=== PATIENT | female | born 1965 | race Caucasian/White ===

== ENCOUNTER 2018-07-14 09:31 | Day surgery (SDC) | payer OTHER ==
[2018-07-14] MEDS ORDERED: MIDAZOLAM 1 MG/ML 2 ML INJ (10:50)
[2018-07-14] MEDS ORDERED: PROPOFOL 40 ML (10:50)
== END 2018-07-14 14:32 | disposition home or self-care (01) ==
LOC: GIL 09:31
DX: Z12.11 Encounter for screening for malignant neoplasm of colon (principal); D12.5 Benign neoplasm of sigmoid colon; K21.9 Gastro-esophageal reflux disease without esophagitis; K44.9 Diaphragmatic hernia without obstruction or gangrene; K29.50 Unspecified chronic gastritis without bleeding; E11.9 Type 2 diabetes mellitus without complications; I10 Essential (primary) hypertension; M19.90 Unspecified osteoarthritis, unspecified site; E66.9 Obesity, unspecified; Z68.32 Body mass index [BMI] 32.0-32.9, adult; Z88.1 Allergy status to other antibiotic agents; Z88.8 Allergy status to other drugs, medicaments and biological substances
CPT/HCPCS: 43239; 82962; 88305; 88312

== ENCOUNTER 2018-09-22 06:14 | Inpatient (IN) | payer OTHER ==
[2018-09-22] MEDS ORDERED: morphine (1 MG/ML) 10ML SYRINGE IV ×3 (06:30)
[2018-09-22] MEDS ORDERED: ONDANSETRON 4 MG INJ IV ×2 (06:30→09:30)
[2018-09-22] MEDS ORDERED: EPHEDrine SULFATE 50 MG/5 ML SYG IV (06:30)
[2018-09-22] MEDS ORDERED: MIDAZOLAM 1 MG/ML 2 ML INJ IV (06:30)
[2018-09-22] MEDS ORDERED: FENTAnyl 50 MCG/ML VIAL IV (06:30)
[2018-09-22] MEDS ORDERED: ATROPINE 1 MG/10 ML SYRINGE IV (06:30)
[2018-09-22] MEDS ORDERED: DIPHENHYDRAMINE 50 MG INJ IV (06:30)
[2018-09-22] MEDS ORDERED: HYDROmorphONE 1 MG/5 ML IV SYRINGE IV ×2 (06:30)
[2018-09-22] MEDS ORDERED: OXYCODONE/ACETAMINOPHEN (5/325) TAB PO ×2 (06:30)
[2018-09-22] MEDS ORDERED: hydrALAzine 20 MG INJ IV (06:30)
[2018-09-22] MEDS ORDERED: MEPERIDINE 25 MG INJ IV (06:30)
[2018-09-22] MEDS ORDERED: LABETALOL HCL 20MG INJ IV (06:30)
[2018-09-22] MEDS ORDERED: FLUMAZENIL 0.5 MG INJ (07:00)
[2018-09-22 07:59] LABS: INR 0.87; PROTIME 11.9 Sec (11.9-14.9); PT RATIO 0.9
[2018-09-22 08:00] LABS: PARTIAL THROMBOPLASTIN TIME 28.2 Sec (23.0-35.0)
[2018-09-22] MEDS ORDERED: GLUCOSE GEL 15 GRAM TUBE BUCCAL (09:30)
[2018-09-22] MEDS ORDERED: NACL 0.9% 3 ML SYG IV (09:30)
[2018-09-22] MEDS ORDERED: DEXTROSE 50% 50 ML SYRINGE IV ×2 (09:30)
[2018-09-22] MEDS ORDERED: GLUCAGON 1 MG INJ IM (09:30)
[2018-09-22] MEDS ORDERED: GLUCOSE GEL 15 GRAM TUBE PO ×2 (09:30)
[2018-09-22] MEDS ORDERED: FENTAnyl 50 MCG/ML VIAL (09:48)
[2018-09-22] MEDS ORDERED: NEOSTIGMINE 3 MG/3 ML SYRINGE (09:48)
[2018-09-22] MEDS ORDERED: ROCURONIUM 50 MG INJ (09:48)
[2018-09-22] MEDS ORDERED: PROPOFOL 20 ML (09:48)
[2018-09-22] MEDS ORDERED: GLYCOPYRROLATE 0.4 MG INJ (09:48)
[2018-09-22] MEDS ORDERED: LIDOCAINE 2% (SDV) 5 ML INJ (09:48)
[2018-09-22] MEDS ORDERED: MIDAZOLAM 1 MG/ML 2 ML INJ (09:48)
[2018-09-22] MEDS ORDERED: ONDANSETRON 4 MG INJ (09:49)
[2018-09-22] MEDS ORDERED: DEXAMETHASONE 4 MG/ML 1 ML INJ (09:49)
[2018-09-22] MEDS ORDERED: ROPIVACAINE 0.5 % 30 ML VIAL ×2 (09:54→11:45)
[2018-09-22] MEDS ORDERED: BUPIVACAINE 0.5% (SDV) 30 ML INJ (11:45)
[2018-09-22] MEDS ORDERED: LABETALOL HCL 20MG INJ (12:22)
[2018-09-22] MEDS ORDERED: hydrALAzine 20 MG INJ (12:22)
[2018-09-22] MEDS: POLYMYXIN/BACITRACIN 1L IRRIG (13:24)
[2018-09-22] MEDS: NEOMYC/POLYMYX/BACIT 30 GM OINT (15:55)
[2018-09-22] MEDS: FENTAnyl 50 MCG/ML VIAL IV (16:31)
[2018-09-22] MEDS: HYDROmorphONE 1 MG/5 ML IV SYRINGE IV (17:46)
[2018-09-22 18:27] LABS: CREATINE KINASE 41 IU/L (23-200)
[2018-09-22 18:40] LABS: CK INDEX 0.9; CK-MB 0.37 ng/ml (0.0-2.4); TROPONIN-I < 0.012 ng/ml (0.000-0.120)
[2018-09-22] MEDS ORDERED: PANTOPRAZOLE (EC) 40 MG TAB PO (18:46)
[2018-09-22] MEDS: PANTOPRAZOLE (EC) 40 MG TAB PO (18:47)
[2018-09-22] MEDS: LORAZEPAM 2 MG INJ IV (18:51)
[2018-09-22] MEDS: morphine 2 MG INJ IV (22:25)
[2018-09-22] MEDS: INSULIN ASPART [NOVOLOG] 3 ML PEN SC ×3 (23:00)
[2018-09-22] MEDS: MONTELUKAST 10 MG TAB PO (23:00)
[2018-09-22 23:24] LABS: CREATINE KINASE 38 IU/L (23-200)
[2018-09-22 23:34] LABS: CK-MB 0.38 ng/ml (0.0-2.4)
[2018-09-22 23:37] LABS: TROPONIN-I < 0.012 ng/ml (0.000-0.120)
[2018-09-22] MEDS: INSULIN GLARGINE [LANTus] (100 UNITS/ML) SYG SC (23:50)
[2018-09-23] MEDS ORDERED: HYDROCODONE/APAP (5/325) TAB PO (02:30)
[2018-09-23] MEDS: ACCU-CHEK XX (02:50)
[2018-09-23 05:42] LABS: ADD MAN DIFF? NO
[2018-09-23 05:52] LABS: BASOPHILS % 0.1 % (0.0-2.0); EOSINOPHILS % 0.1 % (0.0-7.0); HEMATOCRIT 39.1 % (37.0-47.0); HEMOGLOBIN 12.9 g/dl (12.0-16.0); LYMPHOCYTES # 2.2 10^3/ul (0.8-2.9); LYMPHOCYTES % 22.1 % (15.0-51.0); MEAN CORPUSCULAR HEMOGLOBIN 29.2 pg (29.0-33.0); MEAN CORPUSCULAR VOLUME 88.5 fl (82.0-101.0); MEAN PLATELET VOLUME 9.9 fl (7.4-10.4); MONOCYTE # 0.5 10^3/ul (0.3-0.9); MONOCYTES % 5.1 % (0.0-11.0); NEUTROPHIL # 7.3 10^3/ul (1.6-7.5); NEUTROPHILS % 72.1 % (39.0-77.0); PLATELET COUNT 237 10^3/UL (140-415); RED BLOOD COUNT 4.42 10^6/ul (4.20-5.40); RED CELL DISTRIBUTION WIDTH 13.3 % (11.5-14.5)
[2018-09-23 05:52] LABS: WHITE BLOOD COUNT 10.1 10^3/ul (4.8-10.8)
[2018-09-23 06:09] LABS: CREATINE KINASE 32 IU/L (23-200)
[2018-09-23 06:20] LABS: CK INDEX 2.4; CK-MB 0.77 ng/ml (0.0-2.4); TROPONIN-I < 0.012 ng/ml (0.000-0.120)
[2018-09-23 06:31] LABS: ALANINE AMINOTRANSFERASE 53 IU/L (13-69); ALBUMIN 3.5 g/dl (3.3-4.9); ALBUMIN/GLOBULIN RATIO 1.12; ALKALINE PHOSPHATASE 66 IU/L (42-121); ANION GAP 11 (5-13); ASPARTATE AMINO TRANSFERASE 46 IU/L (15-46); BILIRUBIN,INDIRECT 0.2 mg/dl (0-1.1); BILIRUBIN,TOTAL 0.2 mg/dl (0.2-1.3); BLOOD UREA NITROGEN 10 mg/dl (7-20); CALCIUM 9.5 mg/dl (8.4-10.2); CARBON DIOXIDE 26 mmol/L (21-31); CHLORIDE 105 mmol/L (97-110); CHOL/HDL RATIO 3.1 RATIO; CHOLESTEROL 191 mg/dl (100-200); CREATININE 0.56 mg/dl (0.44-1.00); Estimated GFR > 60 mL/min (>60); GLUCOSE 143 mg/dl (70-220); HDL CHOLESTEROL 61 mg/dl (37-92); LDL CHOLESTEROL,CALCULATED 119 mg/dl; PHOSPHORUS 3.9 mg/dl (2.5-4.9); SODIUM 142 mmol/L (135-144); TOTAL PROTEIN 6.6 g/dl (6.1-8.1); TRIGLYCERIDES 56 mg/dl (0-149)
[2018-09-23] MEDS: INSULIN ASPART [NOVOLOG] 3 ML PEN SC ×4 (08:00→20:18)
[2018-09-23 08:19] LABS: HEMOGLOBIN A1C 6.2 % (0-5.9)
[2018-09-23] MEDS: PANTOPRAZOLE (EC) 40 MG TAB PO (08:34)
[2018-09-23] MEDS: HYDROCODONE/APAP (5/325) TAB PO (08:34)
[2018-09-23] MEDS: AMLODIPINE 10 MG TAB PO (08:35)
[2018-09-23] MEDS: morphine 2 MG INJ IV (10:18)
[2018-09-23] MEDS: ENOXAPARIN 40 MG/0.4 ML SYG SC (10:23)
[2018-09-23] MEDS ORDERED: OXYCODONE/ACETAMINOPHEN (5/325) TAB PO ×2 (13:00)
[2018-09-23] MEDS ORDERED: morphine 10 MG INJ IV (13:00)
[2018-09-23] MEDS: oxyCODONE 5 MG TAB PO (13:05)
[2018-09-23] MEDS: GABAPENTIN 100 MG CAP PO ×2 (13:05→20:09)
[2018-09-23] MEDS: CLINDAMYCIN 300 MG CAP PO ×2 (14:21→17:07)
[2018-09-23 14:26] LABS: TROPONIN-I < 0.012 ng/ml (0.000-0.120)
[2018-09-23] MEDS: HYDROmorphONE 2 MG/ML SYG IV ×2 (16:41→20:09)
[2018-09-23] MEDS: INSULIN GLARGINE [LANTus] (100 UNITS/ML) SYG SC (20:00)
[2018-09-23] MEDS: ATORVASTATIN 10 MG TAB PO (20:11)
[2018-09-23] MEDS: MONTELUKAST 10 MG TAB PO (20:11)
[2018-09-24] MEDS: CLINDAMYCIN 300 MG CAP PO ×5 (00:25→23:19)
[2018-09-24] MEDS: ACCU-CHEK XX (01:56)
[2018-09-24] MEDS: ACETAMINOPHEN 325 MG TAB PO (06:10)
[2018-09-24] MEDS: INSULIN ASPART [NOVOLOG] 3 ML PEN SC ×4 (06:13→20:18)
[2018-09-24 06:58] LABS: CHOLESTEROL 182 mg/dl (100-200)
[2018-09-24 06:58] LABS: CHOL/HDL RATIO 3.6 RATIO; HDL CHOLESTEROL 50 mg/dl (37-92); LDL CHOLESTEROL,CALCULATED 110 mg/dl; TRIGLYCERIDES 108 mg/dl (0-149)
[2018-09-24] MEDS: ASPIRIN 81 MG TAB PO (08:21)
[2018-09-24] MEDS: GABAPENTIN 100 MG CAP PO ×3 (08:21→20:13)
[2018-09-24] MEDS: PANTOPRAZOLE (EC) 40 MG TAB PO (08:21)
[2018-09-24] MEDS: AMLODIPINE 10 MG TAB PO (08:22)
[2018-09-24] MEDS: ENOXAPARIN 40 MG/0.4 ML SYG SC (08:25)
[2018-09-24] MEDS: oxyCODONE 5 MG TAB PO ×2 (12:01→23:19)
[2018-09-24] MEDS: HYDROmorphONE 2 MG/ML SYG IV (14:43)
[2018-09-24] MEDS ORDERED: RIVAROXABAN 10 MG TABLET PO (18:00)
[2018-09-24] MEDS: INSULIN GLARGINE [LANTus] (100 UNITS/ML) SYG SC (20:00)
[2018-09-24] MEDS: DOCUSATE SODIUM 100 MG CAP PO (20:14)
[2018-09-24] MEDS: MONTELUKAST 10 MG TAB PO (20:18)
[2018-09-24] MEDS: ATORVASTATIN 10 MG TAB PO (20:18)
[2018-09-25] MEDS: ACCU-CHEK XX ×2 (02:00→20:44)
[2018-09-25] MEDS: ACETAMINOPHEN 325 MG TAB PO (05:33)
[2018-09-25] MEDS: CLINDAMYCIN 300 MG CAP PO ×2 (05:33→12:04)
[2018-09-25] MEDS: DOCUSATE SODIUM 100 MG CAP PO ×2 (05:33→20:42)
[2018-09-25] MEDS: PANTOPRAZOLE (EC) 40 MG TAB PO (05:33)
[2018-09-25] MEDS: INSULIN ASPART [NOVOLOG] 3 ML PEN SC ×4 (08:00→20:38)
[2018-09-25] MEDS: AMLODIPINE 10 MG TAB PO (08:04)
[2018-09-25] MEDS: GABAPENTIN 100 MG CAP PO ×3 (08:04→20:35)
[2018-09-25] MEDS: ASPIRIN 81 MG TAB PO (08:04)
[2018-09-25] MEDS: ENOXAPARIN 40 MG/0.4 ML SYG SC (08:08)
[2018-09-25] MEDS: oxyCODONE 5 MG TAB PO ×2 (08:09→20:42)
[2018-09-25] MEDS: INSULIN GLARGINE [LANTus] (100 UNITS/ML) SYG SC (20:00)
[2018-09-25] MEDS: MONTELUKAST 10 MG TAB PO (20:35)
[2018-09-25] MEDS: ATORVASTATIN 10 MG TAB PO (20:36)
[2018-09-26] MEDS: INSULIN ASPART [NOVOLOG] 3 ML PEN SC ×3 (07:50→17:55)
[2018-09-26] MEDS: ASPIRIN 81 MG TAB PO (09:42)
[2018-09-26] MEDS: AMLODIPINE 10 MG TAB PO (09:42)
[2018-09-26] MEDS: GABAPENTIN 100 MG CAP PO ×2 (09:42→13:06)
[2018-09-26] MEDS: PANTOPRAZOLE (EC) 40 MG TAB PO (09:43)
[2018-09-26] MEDS: ENOXAPARIN 40 MG/0.4 ML SYG SC (09:44)
[2018-09-26] MEDS: DOCUSATE SODIUM 100 MG CAP PO (13:06)
== END 2018-09-26 20:20 | disposition home or self-care (01) | DRG 493 ==
LOC: SDS 06:14 → MS1 09-25 14:47 → SDS 06:14 → 6WM 21:17
PROVIDERS: Internal Medicine
PROC: 0SPG04Z Removal of Internal Fixation Device from Left Ankle Joint, Open Approach (ICD-10-PCS; principal; 2018-09-22 12:01)
PROC: 0SPF05Z Removal of External Fixation Device from Right Ankle Joint, Open Approach (ICD-10-PCS; 2018-09-22 12:01)
DX: T84.84XA Pain due to internal orthopedic prosthetic devices, implants and grafts, initial encounter (principal); M96.0 Pseudarthrosis after fusion or arthrodesis; L03.116 Cellulitis of left lower limb; S82.52XK Displaced fracture of medial malleolus of left tibia, subsequent encounter for closed fracture with nonunion; M65.871 Other synovitis and tenosynovitis, right ankle and foot; G89.18 Other acute postprocedural pain; R07.9 Chest pain, unspecified; X58.XXXD Exposure to other specified factors, subsequent encounter; I10 Essential (primary) hypertension; E11.9 Type 2 diabetes mellitus without complications; Z79.4 Long term (current) use of insulin; Z79.82 Long term (current) use of aspirin
CPT/HCPCS: 73610; 80053; 80061; 82306; 82550; 82553; 82962; 83036; 83735; 84100; 84484; 85025; 85610; 85730; 88300; 93005; 93306; 97110; 97161; 97530

== ENCOUNTER 2019-07-03 08:22 | Observation (INO) | payer OTHER ==
[2019-07-03] MEDS ORDERED: OXYCODONE/ACETAMINOPHEN (5/325) TAB PO ×2 (11:00)
[2019-07-03] MEDS ORDERED: hydrALAzine 20 MG INJ IV (11:00)
[2019-07-03] MEDS ORDERED: HYDROmorphONE 1 MG/5 ML IV SYRINGE IV ×2 (11:00)
[2019-07-03] MEDS ORDERED: LABETALOL HCL 20MG INJ IV (11:00)
[2019-07-03] MEDS ORDERED: PROPOFOL 200 MG INJ (11:25)
[2019-07-03] MEDS ORDERED: LIDOCAINE 2% (SDV) 5 ML INJ (11:25)
[2019-07-03] MEDS ORDERED: MIDAZOLAM 1 MG/ML 2 ML INJ ×2 (11:25→12:05)
[2019-07-03] MEDS ORDERED: ROCURONIUM 50 MG INJ (11:25)
[2019-07-03] MEDS ORDERED: HYDROmorphONE 2 MG/ML SYG (11:27)
[2019-07-03] MEDS ORDERED: morphine 2 MG INJ IV (11:30)
[2019-07-03] MEDS ORDERED: ONDANSETRON 4 MG INJ (11:31)
[2019-07-03] MEDS ORDERED: CEFAZOLIN 1 GM INJ (11:31)
[2019-07-03] MEDS ORDERED: CLINDAMYCIN 600 MG/D5W (PMX) 50 ML IVPB (11:32)
[2019-07-03] MEDS: BACITRACIN/POLYMYXIN 28.35 GM OINT TOP (11:54)
[2019-07-03] MEDS: ROPIVACAINE 0.5 % 30 ML VIAL (11:54)
[2019-07-03] MEDS: POLYMYXIN/BACITRACIN 1L IRRIG (11:54)
[2019-07-03] MEDS ORDERED: SUGAMMADEX SODIUM 200 MG/2 ML VIAL IV (12:15)
[2019-07-03] MEDS: HYDROmorphONE 1 MG/5 ML IV SYRINGE IV (12:50)
[2019-07-03] MEDS: KETOROLAC 30 MG INJ IV (12:55)
[2019-07-03] MEDS: LORAZEPAM 1 MG TAB PO (13:32)
[2019-07-03] MEDS: ONDANSETRON 4 MG INJ IV (14:06)
[2019-07-03] MEDS ORDERED: GLUCOSE GEL 15 GRAM TUBE BUCCAL (17:00)
[2019-07-03] MEDS ORDERED: DEXTROSE 50% 50 ML SYRINGE IV ×2 (17:00)
[2019-07-03] MEDS ORDERED: NACL 0.9% 3 ML SYG IV (17:00)
[2019-07-03] MEDS ORDERED: GLUCAGON 1 MG INJ IM (17:00)
[2019-07-03] MEDS ORDERED: GLUCOSE GEL 15 GRAM TUBE PO ×2 (17:00)
[2019-07-03] MEDS ORDERED: ONDANSETRON 4 MG INJ IV (17:00)
[2019-07-03] MEDS ORDERED: HYDROCODONE/APAP (5/325) TAB PO (17:00)
[2019-07-03] MEDS: ACETAMINOPHEN 325 MG TAB PO (19:02)
[2019-07-03] MEDS: INSULIN ASPART [NOVOLOG] 3 ML PEN SC (21:00)
[2019-07-03] MEDS: MONTELUKAST 10 MG TAB PO (21:41)
[2019-07-04 05:02] LABS: ADD MAN DIFF? NO
[2019-07-04 05:12] LABS: WHITE BLOOD COUNT 7.1 10^3/ul (4.8-10.8)
[2019-07-04 05:12] LABS: BASOPHILS % 0.4 % (0.0-2.0); EOSINOPHILS # 0.1 10^3/ul (0.0-0.5); EOSINOPHILS % 1.4 % (0.0-7.0); HEMATOCRIT 38.8 % (37.0-47.0); HEMOGLOBIN 12.4 g/dl (12.0-16.0); LYMPHOCYTES # 2.3 10^3/ul (0.8-2.9); LYMPHOCYTES % 32.6 % (15.0-51.0); MEAN CORPUSCULAR HEMOGLOBIN 29.2 pg (29.0-33.0); MEAN CORPUSCULAR VOLUME 91.3 fl (82.0-101.0); MEAN PLATELET VOLUME 9.9 fl (7.4-10.4); MONOCYTE # 0.5 10^3/ul (0.3-0.9); MONOCYTES % 6.7 % (0.0-11.0); NEUTROPHIL # 4.2 10^3/ul (1.6-7.5); NEUTROPHILS % 58.5 % (39.0-77.0); PLATELET COUNT 193 10^3/UL (140-415); RED BLOOD COUNT 4.25 10^6/ul (4.20-5.40); RED CELL DISTRIBUTION WIDTH 13.1 % (11.5-14.5)
[2019-07-04 05:37] LABS: CARBON DIOXIDE 29 mmol/L (21-31); CHLORIDE 108 mmol/L (97-110); POTASSIUM 3.9 mmol/L (3.5-5.1); SODIUM 144 mmol/L (135-144)
[2019-07-04 05:49] LABS: MAGNESIUM 2.1 mg/dl (1.7-2.5)
[2019-07-04 05:49] LABS: CHOL/HDL RATIO 3.1 RATIO; CHOLESTEROL 177 mg/dl (100-200); HDL CHOLESTEROL 57 mg/dl (37-92); LDL CHOLESTEROL,CALCULATED 109 mg/dl; TRIGLYCERIDES 55 mg/dl (0-149)
[2019-07-04 06:10] LABS: HEMOGLOBIN A1C 6.4 % (0-5.9)
[2019-07-04 06:18] LABS: ANION GAP 7 (5-13); BLOOD UREA NITROGEN 12 mg/dl (7-20); CALCIUM 9.5 mg/dl (8.4-10.2); CREATININE 0.61 mg/dl (0.44-1.00); Estimated GFR > 60 mL/min (>60); GLUCOSE 88 mg/dl (70-220)
[2019-07-04] MEDS: INSULIN ASPART [NOVOLOG] 3 ML PEN SC ×2 (07:50→11:40)
[2019-07-04] MEDS: ASPIRIN (EC) 81 MG TAB PO (08:43)
[2019-07-04] MEDS: AMLODIPINE 10 MG TAB PO (08:44)
[2019-07-04] MEDS: KETOROLAC 30 MG INJ IV (11:30)
== END 2019-07-04 13:43 | disposition home health service (06) ==
LOC: SDS 08:22 → REC 16:36 → MS1 21:15
PROVIDERS: Internal Medicine
DX: T84.84XA Pain due to internal orthopedic prosthetic devices, implants and grafts, initial encounter (principal); S93.422A Sprain of deltoid ligament of left ankle, initial encounter; R09.02 Hypoxemia; I10 Essential (primary) hypertension; E11.9 Type 2 diabetes mellitus without complications; E78.5 Hyperlipidemia, unspecified; E66.9 Obesity, unspecified; Z68.32 Body mass index [BMI] 32.0-32.9, adult; Y83.8 Other surgical procedures as the cause of abnormal reaction of the patient, or of later complication, without mention of misadventure at the time of the procedure
CPT/HCPCS: 20680; 71045; 73610; 80048; 80061; 82306; 82962; 83036; 83735; 84703; 85025; 88300; 93005; 99217